=== PATIENT | male | born 1995 | race Two or more races ===

== ENCOUNTER 2025-02-22 18:50 | Emergency (ER) | payer OTHER ==
[~2025-02-22] VITALS: Ht 172.7 cm; Wt 79.4 kg
[2025-02-22] MEDS ORDERED: IBUP-1490 PO (21:20)
[2025-02-22 22:15] VITALS: BP 119/67; TEMP 97.9; O2SAT 98
== END 2025-02-22 22:15 | disposition home or self-care (01) ==
LOC: ER 19:05
DX: S61.211A Laceration without foreign body of left index finger without damage to nail, initial encounter (principal); W26.0XXA Contact with knife, initial encounter; Y93.89 Activity, other specified; Y92.89 Other specified places as the place of occurrence of the external cause; Y99.0 Civilian activity done for income or pay